=== PATIENT | male | born 1935 | race Caucasian/White ===

== ENCOUNTER 2018-07-28 16:08 | Inpatient (IN) | payer OTHER, MEDICARE ==
[2018-07-28] MEDS ORDERED: MORPHINE SULFATE 4 MG/ML SYRINGE IV PRN (17:41)
[2018-07-28] MEDS ORDERED: ONDANSETRON 4 MG/2 ML VIAL IVP PRN (17:41)
[2018-07-28] MEDS ORDERED: HYDROmorphone 1 MG/ML 1 ML SYRINGE IVP PRN (17:41)
--- NOTE | 2018-07-28 17:41 | ED ---
Lower Extremity Injury HPI - General Chief Complaint: Extremity Injury, Lower Stated Complaint[facility] Time Seen by Provider: 07/28/18 16:44 Source: patient, RN notes reviewed Mode of arrival: wheelchair Limitations: no limitations - History of Present Illness Initial Comments: 83-year-old male presents emergency Department with chief complaint of left hip pain. Patient states he tripped and fell last night. Patient states he had no other injuries. Patient followed up at the [facility] today was noted to have left hip fracture. Patient states the pain is very mild at this time. He states it does hurt more when he moves. Patient denies any significant past medical history though he states that he does not go to doctors on a regular basis. He denies chest pain, shortness breath, headache, dizziness, nausea vomiting diarrhea constipation. No fevers or chills. - Related Data Home Medications Medication Instructions Recorded Confirmed No Known Home Medications 07/28/18 07/28/18 Allergies Allergy/AdvReac Type Severity Reaction Status Date / Time No Known Allergies Allergy Verified 07/28/18 17:09 Review of Systems ROS Statement: Those systems with pertinent positive or pertinent negative responses have been documented in the HPI. ROS Other: All systems not noted in ROS Statement are negative. Past Medical History Past Medical History: No Reported History History of Any Multi-Drug Resistant Organisms: None Reported Past Surgical History: Appendectomy Past Psychological History: No Psychological Hx Reported Smoking Status: Never smoker Past Alcohol Use History: None Reported Past Drug Use History: None Reported General Exam Limitations: no limitations General appearance: alert, in no apparent distress Head exam: Present: atraumatic, normocephalic, normal inspection Eye exam: Present: normal appearance, PERRL, EOMI. Absent: scleral icterus, conjunctival injection, periorbital swelling ENT exam: Present: normal exam, mucous membranes moist Respiratory exam: Present: normal lung sounds bilaterally. Absent: respiratory distress, wheezes, rales, rhonchi, stridor Cardiovascular Exam: Present: regular rate, normal rhythm, normal heart sounds. Absent: systolic murmur, diastolic murmur, rubs, gallop, clicks Extremities exam: Present: other (Tenderness to left hip, limited range of motion neurovascular intact) Neurological exam: Present: alert, oriented X3, CN II-XII intact, reflexes normal. Absent: motor sensory deficit Skin exam: Present: warm, dry, intact, normal color. Absent: rash Course Vital Signs 07/28/18 16:16 Temperature 98.2 F Pulse Rate 98 Respiratory 18 Rate Blood Pressure 119/81 O2 Sat by Pulse 93 L Oximetry Medical Decision Making - Medical Decision Making 83-year-old male presented for left hip pain. Patient had x-rays outpatient which was reviewed shows left IT fracture patient will be admitted patient will need surgical clearance Disposition Clinical Impression: Closed left hip fracture Disposition: ADMITTED IP TO THIS HOSP Condition: Fair Referrals: [facility],Clinic [Primary Care Provider] - 1-2 days Time of Disposition: 17:41
--- NOTE | 2018-07-28 17:46 | XR ---
EXAMINATION TYPE: XR chest 1V DATE OF EXAM: 07/28/2018 COMPARISON: NONE HISTORY: Preop hip fracture TECHNIQUE: Single frontal view of the chest is obtained. FINDINGS: There is no heart failure nor confluent pneumonic infiltrate. Costophrenic angles are kyle r. Heart size is normal. Bony thorax appears intact. IMPRESSION: No active cardiopulmonary disease.
[2018-07-28 17:52] LABS: Basophils % (A) 0 %; Eosinophils % (A) 0 %; HCT 47.4 % (39.0-53.0); HGB 15.5 gm/dL (13.0-17.5); Lymphocytes # (A) 1.2 k/uL (1.0-4.8); Lymphocytes % (A) 14 %; MCH 31.1 pg (25.0-35.0); MCHC 32.7 g/dL (31.0-37.0); MCV 95.1 fL (80.0-100.0); Mean Platelet Volume 6.5; Monocytes # (A) 0.7 k/uL (0-1.0); Monocytes % (A) 8 %; Neutrophils # (A) 6.9 k/uL (1.3-7.7); Neutrophils % (A) 76 %; Platelet Count 288 k/uL (150-450); RBC 4.98 m/uL (4.30-5.90); RDW 12.7 % (11.5-15.5); WBC 9.1 k/uL (3.8-10.6)
[2018-07-28 18:01] LABS: ALT 23 U/L (21-72); AST 21 U/L (17-59); Albumin 4.2 g/dL (3.5-5.0); Alkaline Phosphatase 71 U/L (38-126); Anion Gap 9 mmol/L; Blood Urea Nitrogen 16 mg/dL (9-20); Calcium 9.7 mg/dL (8.4-10.2); Carbon Dioxide 27 mmol/L (22-30); Chloride 103 mmol/L (98-107); Glucose 123 mg/dL (74-99); Partial Thromboplastin Time 22.7 sec (22.0-30.0); Potassium 5.2 mmol/L (3.5-5.1); Prothrombin Time 10.1 sec (9.0-12.0); Sodium 139 mmol/L (137-145); Total Protein 7.4 g/dL (6.3-8.2)
[2018-07-28] MEDS: SODIUM CHLORIDE 0.9% 1,000 ML IV SCH (19:30)
[2018-07-28 22:43] LABS: Appearance,Urine Clear (Clear); Bilirubin,Urine Negative (Negative); Blood,Urine Negative (Negative); Color,Urine Yellow; Glucose,Urine (UA) Negative (Negative); Ketones,Urine 1+ (Negative); Leukocyte Esterase,Urine Negative (Negative); Nitrite,Urine Negative (Negative); PH, Urine 6.5 (5.0-8.0); Protein,Urine Negative (Negative); Specific Gravity,Urine 1.015 (1.001-1.035); Urobilinogen,Urine <2.0 mg/dL (<2.0)
--- NOTE | 2018-07-29 08:02 | XR ---
EXAMINATION TYPE: XR Hip LT and AP Pelvis DATE OF EXAM: 07/29/2018 COMPARISON: 07/28/2018 HISTORY: Preop planning, fractured hip TECHNIQUE: AP pelvis, 2 views left hip FINDINGS: There is an intertrochanteric fracture through the left hip. There is avulsion of the lesse r trochanter. Femoral head articulates with the acetabulum. No additional fractures are evident. IMPRESSION: 1. Comminuted Intertrochanteric fracture left hip
--- NOTE | 2018-07-29 12:05 | P.CONS ---
History of Present Illness - Reason for Consult Preoperative clearance - History of Present Illness 81-year-old present gentleman with known known past medical history came in after he tripped and fell and a had a left hip fracture. Patient denied any syncopal episode EKG showed some right bundle branch block without any acute ST- T wave changes patient does not have any chest pain at this time denied any history of congestive heart failure other any other cardiac problems. Patient lab testing basic labs are essentially within normal limits patient is not a smoker his baseline functional status is greater than 4 METs. Patient will be started on nonsteroidal anti-with his along with GI prophylaxis to avoid opiates considering his age. Patient is pain-free at this time. Review of Systems REVIEW OF SYSTEMS: CONSTITUTIONAL: No fever, no malaise, no fatigue. HEENT: No recent visual problems or hearing problems. Denied any sore throat. CARDIOVASCULAR: No chest pain, orthopnea, PND, no palpitations, no syncope. PULMONARY: No shortness of breath, no cough, no hemoptysis. GASTROINTESTINAL: No diarrhea, no nausea, no vomiting, no abdominal pain. Normoactive bowel sounds. NEUROLOGICAL: No headaches, no weakness, no numbness. HEMATOLOGICAL: Denies any bleeding or petechiae. GENITOURINARY: Denies any burning micturition, frequency, or urgency. MUSCULOSKELETAL/RHEUMATOLOGICAL: Denies swelling, or any muscle pain. Pain in the left hip when he moves ENDOCRINE: Denies any polyuria or polydipsia. The rest of the 14-point review of systems is negative. Past Medical History Past Medical History: No Reported History History of Any Multi-Drug Resistant Organisms: None Reported Past Surgical History: Appendectomy Past Psychological History: No Psychological Hx Reported Smoking Status: Never smoker Past Alcohol Use History: None Reported Past Drug Use History: None Reported - Past Family History Mother Family Medical History: No Reported History Father Family Medical History: No Reported History Medications and Allergies Home Medications Medication Instructions Recorded Confirmed Type No Known Home Medications 07/28/18 07/28/18 History Allergies Allergy/AdvReac Type Severity Reaction Status Date / Time soy Allergy Unknown Verified 07/29/18 11:08 Physical Exam Vitals: Vital Signs Temp Pulse Pulse Pulse Resp BP BP 07/29/18 07:25 98.3 F 83 16 121/82 07/28/18 23:59 99.0 F 65 113/73 07/28/18 20:09 98.6 F 90 133/66 07/28/18 19:21 98.6 F 79 18 129/82 07/28/18 16:16 98.2 F 98 18 119/81 Pulse Ox 07/29/18 07:25 94 L 07/28/18 23:59 90 L 07/28/18 20:09 90 L 07/28/18 19:21 96 07/28/18 16:16 93 L Intake and Output 07/28/18 07/29/18 07/29/18 22:59 06:59 14:59 Other: Voiding Method Urinal # Voids 2 Weight 81.647 kg PHYSICAL EXAMINATION: GENERAL: The patient is alert and oriented x3, not in any acute distress. Well developed, well nourished. HEENT: Pupils are round and equally reacting to light. EOMI. No scleral icterus. No conjunctival pallor. Normocephalic, atraumatic. No pharyngeal erythema. No thyromegaly. CARDIOVASCULAR: S1 and S2 present. No murmurs, rubs, or gallops. PULMONARY: Chest is clear to auscultation, no wheezing or crackles. ABDOMEN: Soft, nontender, nondistended, normoactive bowel sounds. No palpable organomegaly. MUSCULOSKELETAL: Deferred to orthopedic surgery EXTREMITIES: No cyanosis, clubbing, or pedal edema. NEUROLOGICAL: Gross neurological examination did not reveal any focal deficits. SKIN: No rashes. Results CBC & Chem 7: 07/28/18 17:35 07/28/18 17:35 Labs: Abnormal Lab Results - Last 24 Hours (Table) 07/28/18 07/28/18 Range/Units 17:35 Unknown Potassium 5.2 H (3.5-5.1) mmol/L Glucose 123 H (74-99) mg/dL Urine Ketones 1+ H (Negative) Assessment and Plan Plan: -Preoperative clearance left hip arthroplasty: Patient is low operative risk same thing was discussed with the patient and family members and patient will be going for surgery later today. -Pain management: Avoid opiates benzodiazepines barbiturates and anticholinergic medications considering his age and more prone for toxic encephalopathy or delirium from these medications. Patient will be started on Toradol and GI prophylaxis -DVT prophylaxis as per primary service
[2018-07-29 12:15] VITALS: BMI 25.8
--- NOTE | 2018-07-29 12:38 | P.HPOR ---
History of Present Illness H&P Date: 07/29/18 Chief Complaint: Hip fracture This 83-year-old male with no pertinent medical history presented to the ED yesterday afternoon with a left intertrochanteric hip fracture. The patient states he was walking outside at his friend's house the night of 07/26/18, when he tripped over uneven ground. He is unsure the mechanism of his fall, but he landed on his left hip. He states he experienced immediate pain and swelling of the left hip area. He presented to the [facility] earlier today, where he was told he sustained a hip fracture and should present to [facility] ED for further evaluation and treatment. The patient states he currently has no pain while lying flat in his hospital bed. He states he only has pain while moving the left hip. He denies any other significant injuries or pain in other areas of the body. Patient denies fever, chills, abdominal pain, chest pain or shortness of breath. Review of Systems See HPI. Past Medical History Past Medical History: No Reported History History of Any Multi-Drug Resistant Organisms: None Reported Past Surgical History: Appendectomy Past Psychological History: No Psychological Hx Reported Smoking Status: Never smoker Past Alcohol Use History: None Reported Past Drug Use History: None Reported - Past Family History Mother Family Medical History: No Reported History Father Family Medical History: No Reported History Medications and Allergies Home Medications Medication Instructions Recorded Confirmed Type No Known Home Medications 07/28/18 07/28/18 History Allergies Allergy/AdvReac Type Severity Reaction Status Date / Time soy Allergy Unknown Verified 07/29/18 11:08 Physical Examination On exam patient is lying comfortably in bed in no acute distress. The left lower extremity is shortened and externally rotated. Skin is intact with mild erythema of the left hip. Calf is soft and nontender to palpation. Dorsalis pedis pulses +2. Left lower extremity is warm and well-perfused. Abrasion on left knee. Head is normocephalic and atraumatic. Bilateral upper extremities and right lower extremity exams are within normal limits. - Cervical Spine Neck pain: none Tenderness with palpation: none Full ROM: yes ROM: flexion: normal ROM: extension: normal ROM: rotation right: normal ROM: rotation left: normal ROM: lateral flexion right: normal ROM: lateral flexion left: normal - Lumbar Spine Back pain: none Tenderness with palpation: none Appearance: normal Full ROM: yes ROM: flexion: normal ROM: extension: normal ROM: rotation right: normal ROM: rotation left: normal ROM: lateral flexion right: normal ROM: lateral flexion left: normal Results Xray shoes an intertrochanteric fracture of the left hip with an avulsion of the lesser trochanter. - Labs Labs: Abnormal Lab Results - Last 24 Hours (Table) 07/28/18 07/28/18 Range/Units 17:35 Unknown Potassium 5.2 H (3.5-5.1) mmol/L Glucose 123 H (74-99) mg/dL Urine Ketones 1+ H (Negative) H & H 07/28/18 Range/Units 17:35 Hgb 15.5 (13.0-17.5) gm/dL Hct 47.4 (39.0-53.0) % Coagulation 07/28/18 Range/Units 17:35 INR 1.0 (<1.2) Result Diagrams: 07/28/18 17:35 07/28/18 17:35 Assessment and Plan Assessment: Intertrochanteric fracture of the left hip Plan: 1. Rest, ice, elevation of left hip. 2. Pain control as needed. 3. NPO. 4. Intertrochanteric nail placement today with Dr. Gandhi pending medical clearance and consent.
[2018-07-29] MEDS: SODIUM CHLORIDE 0.9% 1,000 ML IV SCH ×2 (13:13→22:26)
[2018-07-29] MEDS: FAMOTIDINE 20 MG TAB PO SCH ×2 (14:12→21:33)
[2018-07-29] MEDS ORDERED: SODIUM CHLORIDE 0.9% 900 ML IV ONE (14:35)
[2018-07-29] MEDS ORDERED: SODIUM CHLORIDE 0.9% 50 ML with ceFAZolin 2,000 MG IV ONE ×2 (16:28)
[2018-07-29] MEDS ORDERED: PHENYLEPHRINE-0.9% NACL SYG 1 MG/10 ML SYRINGE ONE (16:28)
[2018-07-29] MEDS ORDERED: fentaNYL (PF) 50 MCG/ML 2 ML AMP ONE (16:28)
[2018-07-29] MEDS ORDERED: MIDAZOLAM 2 MG/2 ML VIAL ONE (16:28)
[2018-07-29] MEDS ORDERED: KETAMINE 10 MG/ML 20 ML VIAL ONE (16:28)
[2018-07-29] MEDS ORDERED: ceFAZolin 1,000 MG in SODIUM CHLORIDE 0.9% 1,000 ML IRRIGATION ONE (17:21)
[2018-07-29] MEDS ORDERED: HYDROcodone/APAP 5-325MG 1 EACH TAB PO PRN (18:18)
[2018-07-29] MEDS ORDERED: ONDANSETRON 4 MG/2 ML VIAL IVP PRN (18:18)
[2018-07-29] MEDS ORDERED: NALOXONE 0.4 MG/ML 1 ML VIAL IV PRN (18:18)
[2018-07-29] MEDS ORDERED: MAGNESIUM HYDROXIDE 2,400 MG/10 ML CUP PO PRN (18:18)
[2018-07-29] MEDS ORDERED: CALCIUM CARBONATE 500 MG CHEWABLE PO PRN (18:26)
--- NOTE | 2018-07-29 18:38 | P.OP ---
Date of Procedure: 07/29/18 Preoperative Diagnosis: left intertrochanteric hip fracture Postoperative Diagnosis: Left intertrochanteric hip fracture Procedure(s) Performed: Operative fixation of left intertrochanteric hip fracture with short intramedullary hip screw Anesthesia: spinal Surgeon: Renato Gandhi Iv Therapy Nurse #1: Devon Vieira Estimated Blood Loss (ml): 50 IV fluids (ml): 350 Pathology: none sent Condition: stable Disposition: PACU Indications for Procedure: The patient is a very pleasant relatively healthy 83-year-old male who sustained a ground-level fall yesterday resulting in a left intertrochanteric hip fracture. The patient was seen at an outlying facility where x-rays showed a hip fracture and he was transferred to our hospital. He was admitted under my care. He was seen preoperatively by internal medicine and cleared for surgery. I met with the patient and his extended family before surgery to discuss surgical options. My recommendation is operative fixation of his hip fracture with an intramedullary hip screw. We discussed potential risks and Locations of surgery including but not limited to risk of anesthesia, superficial infection, deep infection, delayed wound healing, wound necrosis, intraoperative fracture, postoperative fracture, varus collapse, failure of the implant, fracture displacement, need for further surgery, chronic pain, chronic swelling, inability to ambulate, difficulty ambulating, inability to regain preinjury level of function, DVT, PE, acute coronary event, stroke, urinary tract infection, pressure sores, and possibly loss of life. The patient and his extended family voiced her understanding of these potential complications and also a Tinel's other complications are possible. They provided their verbal and written consent to go forward with surgery. Description of Procedure: The patient was identified in preoperative holding and the correct left leg was marked with my initials. I reviewed the consent form with the patient and all of their questions were answered. The patient was then seen by anesthesia and brought back to the operating room. While he was still on the gurney a spinal anesthetic was administered. The patient was then carefully transferred onto a fracture table. A perineal post was placed. The affected left leg was placed into the boot of the fracture table. The unaffected right leg was flexed at the hip and the knee and was placed in a well leg acevedo. Both legs were secured and padded. The torso was then adducted toward the right and the left arm was draped across the body. A timeout was performed identifying the correct patient, operative extremity, and procedure. A large C-arm was then brought in to monitor the reduction. Using a combination of internal rotation, adduction, and longitudinal traction the fracture was reduced. I verified that the fracture was reduced in both the AP and lateral plane with fluoroscopy. The left leg was then prepped and draped in the standard sterile fashion. I began by making a stab incision just proximal to the tip of the greater trochanter in line with the femur. A guidepin was placed just medial to the tip of the greater trochanter on the AP view and centered with the femoral canal and the lateral view. A cannulated opening reamer was used over the guidepin to create an entrance of the proximal canal the femur. The cannulated opening reamer and guidepin were then removed. A short 10 mm diameter Synthes TFN nail was dispensed. It was hooked up to the targeting arm and I verified that the slots on the targeting arm corresponded to the slots on the nail. The nail was then gently tapped into place. The trocar for the helical blade was attached to the targeting arm and a marking was made on the lateral aspect of the femur. A second skin incision was made through the skin, subcutaneous tissue and IT band down the lateral cortex of the femur. The trocar was brought down to the lateral cortex of the femur and a guidepin was placed in the center center position in the femoral head. It was verified in AP view and found to be centered in the femoral head. The lateral view showed the guidepin to be slightly posterior to central which I accepted. A cannulated reamer was then used over the guidepin. A helical blade was then gently tapped into place. The set screw was applied proximally and then backed off half a turn to allow compression. The trocar for the helical blade was then tightened clockwise to generate compression across the fracture. The trocar for the helical blade was then removed. A trocar was then placed through the targeting arm for distal interlocking screw. A drill was used followed by a depth gauge and a distal interlocking screw was then placed. The targeting arm was removed proximally. Final fluoroscopic images were taken including an AP and lateral view. The wounds were then copiously irrigated and closed in layers. Devon [facility] was required as a skilled assistant principal for patient positioning, surgical exposure, reduction of fracture, placement of instrumentation, closure of wounds, and application of dressing. Plan: The patient can be toe-touch weightbearing on the left leg. He will need 2 doses of postoperative antibiotics. He will need DVT prophylaxis with Lovenox 40 mg daily 4 weeks. He'll need physical therapy for gait training and social work for discharge planning. Appreciate internal medicine assistance with perioperative medical management
[2018-07-29 20:02] LABS: Basophils % (A) 0 %; Eosinophils # (A) 0.1 k/uL (0-0.7); Eosinophils % (A) 1 %; HCT 42.9 % (39.0-53.0); HGB 13.7 gm/dL (13.0-17.5); Lymphocytes # (A) 1.2 k/uL (1.0-4.8); Lymphocytes % (A) 11 %; MCH 31.4 pg (25.0-35.0); MCHC 31.9 g/dL (31.0-37.0); MCV 98.6 fL (80.0-100.0); Mean Platelet Volume 6.5; Monocytes # (A) 0.7 k/uL (0-1.0); Monocytes % (A) 7 %; Neutrophils # (A) 8.4 k/uL (1.3-7.7); Neutrophils % (A) 78 %; Platelet Count 239 k/uL (150-450); RBC 4.35 m/uL (4.30-5.90); RDW 12.6 % (11.5-15.5); WBC 10.7 k/uL (3.8-10.6)
[2018-07-29] MEDS: HYDROmorphone 1 MG/ML 1 ML SYRINGE IVP PRN ×2 (20:46→23:45)
[2018-07-29] MEDS: SENNOSIDES-DOCUSATE SODIUM 1 EACH TAB PO SCH (21:33)
[2018-07-29] MEDS: LACTATED RINGERS 1,000 ML IV SCH (21:33)
[2018-07-29] MEDS: HYDROcodone/APAP 5-325MG 1 EACH TAB PO PRN (21:36)
[2018-07-29] MEDS: ceFAZolin IN SWFI 2 GM/20 ML SYRINGE IVP SCH (23:46)
[2018-07-30 07:17] LABS: HCT 35.8 % (39.0-53.0); MCH 31.8 pg (25.0-35.0); MCHC 33.7 g/dL (31.0-37.0); MCV 94.4 fL (80.0-100.0); Mean Platelet Volume 6.6; Platelet Count 215 k/uL (150-450); RBC 3.79 m/uL (4.30-5.90); RDW 12.5 % (11.5-15.5); WBC 7.5 k/uL (3.8-10.6)
[2018-07-30] MEDS: LACTATED RINGERS 1,000 ML IV SCH ×3 (07:22→23:23)
[2018-07-30 07:32] LABS: Anion Gap 6 mmol/L; Blood Urea Nitrogen 12 mg/dL (9-20); Calcium 8.1 mg/dL (8.4-10.2); Carbon Dioxide 26 mmol/L (22-30); Chloride 104 mmol/L (98-107); Glucose 103 mg/dL (74-99); Sodium 136 mmol/L (137-145)
[2018-07-30] MEDS: KETOROLAC 30 MG/ML 1 ML VIAL IVP PRN ×2 (08:47→23:23)
[2018-07-30] MEDS: CHOLECALCIFEROL 1,000 UNIT TAB PO SCH ×2 (08:47→08:48)
[2018-07-30] MEDS: FAMOTIDINE 20 MG TAB PO SCH ×2 (08:48→22:04)
[2018-07-30] MEDS: MULTIVITAMINS, THERA 1 EACH TAB PO SCH (08:49)
[2018-07-30] MEDS: ENOXAPARIN 40 MG/0.4 ML SYRINGE SQ SCH (08:52)
[2018-07-30] MEDS: ceFAZolin IN SWFI 2 GM/20 ML SYRINGE IVP SCH (09:36)
[2018-07-30] MEDS ORDERED: SENNOSIDES 8.6 MG TAB PO PRN (09:37)
[2018-07-30] MEDS: SENNOSIDES-DOCUSATE SODIUM 1 EACH TAB PO SCH (09:54)
--- NOTE | 2018-07-30 09:56 | P.PN ---
Subjective 81-year-old pleasant gentleman admitted for left hip fracture underwent open reduction internal fixation with screw. Patient is clinically doing well did not move his bowels and 6 does have good bowel sounds. Morphine and Dilaudid will be discontinued patient will continued on [place] Toradol. Patient denied any pain at this point of time. Patient is doing well. Patient doesn't have any surgical drain. Constitutional: Denied any fatigue denied any fever. Cardio vascular: denied any chest pain, palpitations Gastrointestinal denied any nausea vomiting Pulmonary: Denied any shortness of breath cough Neurologic denied any new focal deficits All inpatient medications were reviewed and appropriate changes in these medications as dictated in the interval history and assessment and plan. Objective - Vital Signs Vital signs: Vital Signs Temp 98.3 F 07/30/18 08:00 Pulse 82 07/30/18 08:00 Resp 18 07/30/18 08:00 BP 128/78 07/30/18 08:00 Pulse Ox 94 L 07/29/18 23:57 Intake & Output 07/29/18 07/30/18 07/30/18 18:59 06:59 18:59 Intake Total 1301 1050 Output Total 20 650 Balance 1281 400 Weight 81.647 kg Intake: IV 1301 Sodium Chloride 0.9% 1, 600 000 ml @ 75 mls/hr IV . [id number] DANNY Rx#:[id number] Intake, IV Titration 1050 Amount Lactated Ringers 1,000 ml 1050 @ 100 mls/hr IV .Q10H DANNY Rx#:[id number] Output: Urine 650 Estimated Blood Loss 20 Other: Voiding Method Urinal Urinal # Voids 1 2 - Exam PHYSICAL EXAMINATION: GENERAL: The patient is alert and oriented x3, not in any acute distress. Well developed, well nourished. HEENT: Pupils are round and equally reacting to light. EOMI. No scleral icterus. No conjunctival pallor. Normocephalic, atraumatic. No pharyngeal erythema. No thyromegaly. CARDIOVASCULAR: S1 and S2 present. No murmurs, rubs, or gallops. PULMONARY: Chest is clear to auscultation, no wheezing or crackles. ABDOMEN: Soft, nontender, nondistended, normoactive bowel sounds. No palpable organomegaly. MUSCULOSKELETAL: Deferred to orthopedic surgery EXTREMITIES: No cyanosis, clubbing, or pedal edema. NEUROLOGICAL: Gross neurological examination did not reveal any focal deficits. SKIN: No rashes. - Labs CBC & Chem 7: 07/30/18 06:48 07/30/18 06:48 Labs: Abnormal Lab Results - Last 24 Hours (Table) 07/29/18 07/30/18 07/30/18 Range/Units 19:25 06:48 06:48 WBC 10.7 H (3.8-10.6) k/uL RBC 3.79 L (4.30-5.90) m/uL Hgb 12.0 L (13.0-17.5) gm/dL Hct 35.8 L (39.0-53.0) % Neutrophils # 8.4 H (1.3-7.7) k/uL Sodium 136 L (137-145) mmol/L Creatinine 0.56 L (0.66-1.25) mg/dL Glucose 103 H (74-99) mg/dL Calcium 8.1 L (8.4-10.2) mg/dL Assessment and Plan Plan: -Left hip fracture mechanical fall.: Pain management as mentioned above, DVT prophylaxis as per primary service. Patient will be started on some as needed for constipation -Pain management: Avoid opiates benzodiazepines barbiturates and anticholinergic medications considering his age and more prone for toxic encephalopathy or delirium from these medications. Patient will be started on Toradol and GI prophylaxis -DVT prophylaxis as per primary service
--- NOTE | 2018-07-30 10:09 | P.PN ---
Subjective Progress Note Date: 07/30/18 The patient is doing well this morning. He denies chest pain or shortness of breath. He has some discomfort in his hip and his pain is adequately controlled. He got up and started at bedside with physical therapy earlier this morning. Objective - Vital Signs Vital signs: Vital Signs Temp 98.3 F 07/30/18 08:00 Pulse 82 07/30/18 08:00 Resp 18 07/30/18 08:00 BP 128/78 07/30/18 08:00 Pulse Ox 94 L 07/29/18 23:57 Intake & Output 07/29/18 07/30/18 07/30/18 18:59 06:59 18:59 Intake Total 1301 1050 Output Total 20 650 Balance 1281 400 Weight 81.647 kg Intake: IV 1301 Sodium Chloride 0.9% 1, 600 000 ml @ 75 mls/hr IV . [id number] DANNY Rx#:[id number] Intake, IV Titration 1050 Amount Lactated Ringers 1,000 ml 1050 @ 100 mls/hr IV .Q10H DANNY Rx#:[id number] Output: Urine 650 Estimated Blood Loss 20 Other: Voiding Method Urinal Urinal # Voids 1 2 - Exam The patient is in no apparent distress and is alert and able to answer questions. On examination of the left leg there are clean dressings over the hip. The thigh is soft. Motor and sensory function are intact in the foot. - Labs CBC & Chem 7: 07/30/18 06:48 07/30/18 06:48 Labs: Abnormal Lab Results - Last 24 Hours (Table) 07/29/18 07/30/18 07/30/18 Range/Units 19:25 06:48 06:48 WBC 10.7 H (3.8-10.6) k/uL RBC 3.79 L (4.30-5.90) m/uL Hgb 12.0 L (13.0-17.5) gm/dL Hct 35.8 L (39.0-53.0) % Neutrophils # 8.4 H (1.3-7.7) k/uL Sodium 136 L (137-145) mmol/L Creatinine 0.56 L (0.66-1.25) mg/dL Glucose 103 H (74-99) mg/dL Calcium 8.1 L (8.4-10.2) mg/dL Assessment and Plan Plan: Postoperative day #1 status post operative fixation of left intertrochanteric hip fracture with short intramedullary hip screw, doing well. 1. Toe-touch weightbearing on the left lower extremity 2. DVT prophylaxis with Lovenox 40 mg daily 4 weeks 3. 2 doses postoperative antibiotics 4. Appreciate internal medicine's assistance with perioperative medical management 5. Bone health labs pending 6. Continued physical therapy for mobilization and gait training 7. Discharge planning in progress
--- NOTE | 2018-07-30 11:23 | P.PN ---
Subjective Progress Note Date: 07/30/18 Principal diagnosis: Left hip fracture Patient is seen at bedside this morning. He is postop day #1 from left IT nail for hip fracture. He has pain at the surgical site as expected but denies any new complaints. He denies numbness, tingling or calf pain. Review of systems is negative for fever, chills, chest pain, shortness of breath or other Objective - Vital Signs Vital signs: Vital Signs Temp 98.3 F 07/30/18 08:00 Pulse 82 07/30/18 08:00 Resp 18 07/30/18 08:00 BP 128/78 07/30/18 08:00 Pulse Ox 94 L 07/29/18 23:57 Intake & Output 07/29/18 07/30/18 07/30/18 18:59 06:59 18:59 Intake Total 1301 1050 Output Total 20 650 Balance 1281 400 Weight 81.647 kg Intake: IV 1301 Sodium Chloride 0.9% 1, 600 000 ml @ 75 mls/hr IV . [id number] [facility] Rx#:[id number] Intake, IV Titration 1050 Amount Lactated Ringers 1,000 ml 1050 @ 100 mls/hr IV .Q10H [facility] Rx#:[id number] Output: Urine 650 Estimated Blood Loss 20 Other: Voiding Method Urinal Urinal # Voids 1 2 - Exam Inspection reveals a benign surgical wound. There is no active bleeding or drainage. Neurovascular status is intact throughout the lower extremity with motor and sensation fully intact. Calf is soft and nontender. 2+ dorsalis pedis pulse and less than 2 second cap refill is present. - Constitutional General appearance: Present: no acute distress - Labs CBC & Chem 7: 07/30/18 06:48 07/30/18 06:48 Labs: Abnormal Lab Results - Last 24 Hours (Table) 07/29/18 07/30/18 07/30/18 Range/Units 19:25 06:48 06:48 WBC 10.7 H (3.8-10.6) k/uL RBC 3.79 L (4.30-5.90) m/uL Hgb 12.0 L (13.0-17.5) gm/dL Hct 35.8 L (39.0-53.0) % Neutrophils # 8.4 H (1.3-7.7) k/uL Sodium 136 L (137-145) mmol/L Creatinine 0.56 L (0.66-1.25) mg/dL Glucose 103 H (74-99) mg/dL Calcium 8.1 L (8.4-10.2) mg/dL Assessment and Plan (1) Closed left hip fracture Narrative/Plan: He will continue with routine postop orthopedic protocol including pain management, PT, wound care, DVT prophylaxis and medical management. Expect that he will discharge to home with home health in the next one to 2 days Current Visit: Yes Status: Acute Priority: Medium Code(s): S72.002A - FRACTURE OF UNSP PART OF NECK OF LEFT FEMUR, INIT SNOMED Code(s): 451808313 Time with Patient: Less than 30
[2018-07-30] MEDS: SODIUM CHLORIDE 0.9% 1,000 ML IV SCH (12:55)
[2018-07-30] MEDS: HYDROcodone/APAP 5-325MG 1 EACH TAB PO PRN (14:45)
[2018-07-30] MEDS ORDERED: ERGOCALCIFEROL 50,000 UNIT CAP PO SCH (21:00)
[2018-07-30] MEDS ORDERED: diphenhydrAMINE 25 MG CAP PO PRN (22:06)
[2018-07-31] MEDS: SODIUM CHLORIDE 0.9% 1,000 ML IV SCH ×2 (01:14→15:55)
[2018-07-31] MEDS: KETOROLAC 30 MG/ML 1 ML VIAL IVP PRN ×2 (05:32→21:15)
[2018-07-31 07:19] LABS: Basophils % (A) 1 %; Eosinophils # (A) 0.2 k/uL (0-0.7); Eosinophils % (A) 3 %; HCT 33.5 % (39.0-53.0); HGB 10.9 gm/dL (13.0-17.5); Lymphocytes # (A) 0.7 k/uL (1.0-4.8); Lymphocytes % (A) 11 %; MCH 30.7 pg (25.0-35.0); MCHC 32.5 g/dL (31.0-37.0); MCV 94.5 fL (80.0-100.0); Mean Platelet Volume 6.4; Monocytes # (A) 0.5 k/uL (0-1.0); Monocytes % (A) 8 %; Neutrophils # (A) 4.6 k/uL (1.3-7.7); Neutrophils % (A) 75 %; Platelet Count 216 k/uL (150-450); RBC 3.54 m/uL (4.30-5.90); RDW 12.5 % (11.5-15.5); WBC 6.2 k/uL (3.8-10.6)
[2018-07-31] MEDS: CHOLECALCIFEROL 1,000 UNIT TAB PO SCH (07:33)
[2018-07-31] MEDS: ENOXAPARIN 40 MG/0.4 ML SYRINGE SQ SCH (07:34)
[2018-07-31] MEDS: MULTIVITAMINS, THERA 1 EACH TAB PO SCH (07:34)
[2018-07-31] MEDS: FAMOTIDINE 20 MG TAB PO SCH ×2 (07:35→21:14)
[2018-07-31] MEDS: LACTATED RINGERS 1,000 ML IV SCH ×2 (08:33→20:44)
--- NOTE | 2018-07-31 10:19 | XR ---
Fluoroscopy History: Lt hip IT nail Lt hip IT nail, 1 min 28 sec fluoro, 2 images scanned
--- NOTE | 2018-07-31 13:07 | P.PN ---
Subjective 81-year-old pleasant gentleman admitted for left hip fracture underwent open reduction internal fixation with screw. Patient is clinically doing well did not move his bowels and 6 does have good bowel sounds. Morphine and Dilaudid will be discontinued patient will continued on [place] Toradol. Patient denied any pain at this point of time. Patient is doing well. Patient doesn't have any surgical drain. 07/31/2018 No overnight events patient had a good bowel movement today. Constitutional: Denied any fatigue denied any fever. Cardio vascular: denied any chest pain, palpitations Gastrointestinal denied any nausea vomiting Pulmonary: Denied any shortness of breath cough Neurologic denied any new focal deficits All inpatient medications were reviewed and appropriate changes in these medications as dictated in the interval history and assessment and plan. Objective - Vital Signs Vital signs: Vital Signs Temp 98.4 F 07/31/18 08:00 Pulse 76 07/31/18 08:00 Resp 16 07/31/18 08:00 BP 126/72 07/31/18 08:00 Pulse Ox 98 07/31/18 08:00 Intake & Output 07/30/18 07/31/18 07/31/18 18:59 06:59 18:59 Intake Total 1722 1300 850 Output Total 300 Balance 1422 1300 850 Intake: IV 1000 Sodium Chloride 0.9% 1, 1000 000 ml @ 75 mls/hr IV . [id number] [facility] Rx#:[id number] Intake, IV Titration 1300 Amount Lactated Ringers 1,000 ml 1300 @ 100 mls/hr IV .Q10H [facility] Rx#:[id number] Oral 722 850 Output: Urine 300 Other: Voiding Method Urinal # Voids 2 # Bowel Movements 1 - Exam PHYSICAL EXAMINATION: GENERAL: The patient is alert and oriented x3, not in any acute distress. Well developed, well nourished. HEENT: Pupils are round and equally reacting to light. EOMI. No scleral icterus. No conjunctival pallor. Normocephalic, atraumatic. No pharyngeal erythema. No thyromegaly. CARDIOVASCULAR: S1 and S2 present. No murmurs, rubs, or gallops. PULMONARY: Chest is clear to auscultation, no wheezing or crackles. ABDOMEN: Soft, nontender, nondistended, normoactive bowel sounds. No palpable organomegaly. MUSCULOSKELETAL: Deferred to orthopedic surgery EXTREMITIES: No cyanosis, clubbing, or pedal edema. NEUROLOGICAL: Gross neurological examination did not reveal any focal deficits. SKIN: No rashes. - Labs CBC & Chem 7: 07/31/18 06:43 07/30/18 06:48 Labs: Abnormal Lab Results - Last 24 Hours (Table) 07/31/18 Range/Units 06:43 RBC 3.54 L (4.30-5.90) m/uL Hgb 10.9 L (13.0-17.5) gm/dL Hct 33.5 L (39.0-53.0) % Lymphocytes # 0.7 L (1.0-4.8) k/uL Assessment and Plan Plan: -Left hip fracture mechanical fall.: Pain management as mentioned above, DVT prophylaxis as per primary service. Patient will be started on some as needed for constipation -Pain management: Avoid opiates benzodiazepines barbiturates and anticholinergic medications considering his age and more prone for toxic encephalopathy or delirium from these medications. Patient will be started on Toradol and GI prophylaxis -DVT prophylaxis as per primary service
--- NOTE | 2018-07-31 13:54 | P.PN ---
Subjective Progress Note Date: 07/31/18 Principal diagnosis: Left hip fracture Patient is seen at bedside this morning. He is postop day #2 from left IT nail for hip fracture. He has pain at the surgical site as expected but denies any new complaints. He denies numbness, tingling or calf pain. Review of systems is negative for fever, chills, chest pain, shortness of breath or other Objective - Vital Signs Vital signs: Vital Signs Temp 98.4 F 07/31/18 08:00 Pulse 76 07/31/18 08:00 Resp 16 07/31/18 08:00 BP 126/72 07/31/18 08:00 Pulse Ox 98 07/31/18 08:00 Intake & Output 07/30/18 07/31/18 07/31/18 18:59 06:59 18:59 Intake Total 1722 1300 850 Output Total 300 Balance 1422 1300 850 Intake: IV 1000 Sodium Chloride 0.9% 1, 1000 000 ml @ 75 mls/hr IV . [id number] [facility] Rx#:[id number] Intake, IV Titration 1300 Amount Lactated Ringers 1,000 ml 1300 @ 100 mls/hr IV .Q10H [facility] Rx#:[id number] Oral 722 850 Output: Urine 300 Other: Voiding Method Urinal # Voids 2 # Bowel Movements 1 - Exam Inspection reveals a benign surgical wound. There is no active bleeding or drainage. Neurovascular status is intact throughout the lower extremity with motor and sensation fully intact. Calf is soft and nontender. 2+ dorsalis pedis pulse and less than 2 second cap refill is present. - Constitutional General appearance: Present: no acute distress - Labs CBC & Chem 7: 07/31/18 06:43 07/30/18 06:48 Labs: Abnormal Lab Results - Last 24 Hours (Table) 07/31/18 Range/Units 06:43 RBC 3.54 L (4.30-5.90) m/uL Hgb 10.9 L (13.0-17.5) gm/dL Hct 33.5 L (39.0-53.0) % Lymphocytes # 0.7 L (1.0-4.8) k/uL Assessment and Plan (1) Closed left hip fracture Narrative/Plan: He will continue with routine postop orthopedic protocol including pain management, PT, wound care, DVT prophylaxis and medical management. Expect that he will discharge to home with home health tomorrow Current Visit: Yes Status: Acute Priority: Medium Code(s): S72.002A - FRACTURE OF UNSP PART OF NECK OF LEFT FEMUR, INIT SNOMED Code(s): 324862116 Time with Patient: Less than 30
[2018-07-31 19:45] VITALS: RESP 14
[2018-07-31] MEDS: SENNOSIDES-DOCUSATE SODIUM 1 EACH TAB PO SCH (21:15)
[2018-08-01] MEDS: SODIUM CHLORIDE 0.9% 1,000 ML IV SCH (03:57)
[2018-08-01] MEDS: LACTATED RINGERS 1,000 ML IV SCH (05:23)
[2018-08-01 07:06] VITALS: BP 136/75; PULSE 72; TEMP 98.6
[2018-08-01] MEDS: ENOXAPARIN 40 MG/0.4 ML SYRINGE SQ SCH ×2 (07:10→07:11)
[2018-08-01] MEDS: KETOROLAC 30 MG/ML 1 ML VIAL IVP PRN (07:10)
[2018-08-01] MEDS: FAMOTIDINE 20 MG TAB PO SCH (07:10)
--- NOTE | 2018-08-01 08:53 | FL ---
EXAMINATION TYPE: FL guidance operating room DATE OF EXAM: 07/29/2018 HISTORY: Flouroscopy time 1 minute and 28 seconds of fluoroscopy provided. IMPRESSION: 1. Fluoroscopy time.
[2018-08-01] MEDS: MULTIVITAMINS, THERA 1 EACH TAB PO SCH (12:12)
--- NOTE | 2018-08-01 14:07 | P.PN ---
Subjective 81-year-old pleasant gentleman admitted for left hip fracture underwent open reduction internal fixation with screw. Patient is clinically doing well did not move his bowels and 6 does have good bowel sounds. Morphine and Dilaudid will be discontinued patient will continued on [place] Toradol. Patient denied any pain at this point of time. Patient is doing well. Patient doesn't have any surgical drain. 07/31/2018 No overnight events patient had a good bowel movement today. 08/01/2018 Patient is clinically doing very well discharge medication reconciliation was reviewed and patient is okay to be discharged from medical perspective Constitutional: Denied any fatigue denied any fever. Cardio vascular: denied any chest pain, palpitations Gastrointestinal denied any nausea vomiting Pulmonary: Denied any shortness of breath cough Neurologic denied any new focal deficits All inpatient medications were reviewed and appropriate changes in these medications as dictated in the interval history and assessment and plan. Objective - Vital Signs Vital signs: Vital Signs Temp 98.6 F 08/01/18 07:02 Pulse 72 08/01/18 07:02 Resp 14 07/31/18 19:15 BP 136/75 08/01/18 07:02 Pulse Ox 92 L 08/01/18 07:02 Intake & Output 07/31/18 08/01/18 08/01/18 18:59 06:59 18:59 Intake Total 2765 350 Output Total 600 Balance 2165 350 Intake: IV 675 Sodium Chloride 0.9% 1, 675 000 ml @ 75 mls/hr IV . [id number] [facility] Rx#:[id number] Oral 2090 350 Output: Urine 600 Other: Voiding Method Toilet Toilet # Voids 1 # Bowel Movements 1 - Exam PHYSICAL EXAMINATION: GENERAL: The patient is alert and oriented x3, not in any acute distress. Well developed, well nourished. HEENT: Pupils are round and equally reacting to light. EOMI. No scleral icterus. No conjunctival pallor. Normocephalic, atraumatic. No pharyngeal erythema. No thyromegaly. CARDIOVASCULAR: S1 and S2 present. No murmurs, rubs, or gallops. PULMONARY: Chest is clear to auscultation, no wheezing or crackles. ABDOMEN: Soft, nontender, nondistended, normoactive bowel sounds. No palpable organomegaly. MUSCULOSKELETAL: Deferred to orthopedic surgery EXTREMITIES: No cyanosis, clubbing, or pedal edema. NEUROLOGICAL: Gross neurological examination did not reveal any focal deficits. SKIN: No rashes. - Labs CBC & Chem 7: 07/31/18 06:43 07/30/18 06:48 Assessment and Plan Plan: -Left hip fracture mechanical fall.: Pain management as mentioned above, DVT prophylaxis as per primary service. Patient is otherwise clinically doing well and is being discharged today medically stable to be discharged -DVT prophylaxis as per primary service
== END 2018-08-01 14:30 | disposition home health service (06) | DRG 482 ==
LOC: EC 16:08 → 4SSUR 18:27
PROVIDERS: ADMIT Orthopaedic Surgery; ATTEND Orthopaedic Surgery
PROC: 0QS736Z Reposition Left Upper Femur with Intramedullary Internal Fixation Device, Percutaneous Approach (ICD-10-PCS; principal; 2018-07-29 09:45)
DX: S72.142A Displaced intertrochanteric fracture of left femur, initial encounter for closed fracture (principal); I45.10 Unspecified right bundle-branch block; Z90.49 Acquired absence of other specified parts of digestive tract; Z91.018 Allergy to other foods; W01.0XXA Fall on same level from slipping, tripping and stumbling without subsequent striking against object, initial encounter
CPT/HCPCS: 36415; 71045; 73502; 80048; 80053; 81003; 82306; 85025; 85027; 85610; 85730; 93005; 99285

== ENCOUNTER → 2018-10-11 | Outpatient (CLI) | payer OTHER ==
--- NOTE | 2018-10-11 13:23 | CT ---
EXAMINATION TYPE: CT humerus LT wo con DATE OF EXAM: 10/11/2018 COMPARISON: Pain HISTORY: Left sided arm pain post fall July 2018 CT DLP: 429.1 mGycm Automated exposure control for dose reduction was used. FINDINGS: There is arthropathy of the AC joint and narrowing and hypertrophic change of the glenohumeral joint. Hypertrophic and degenerative change of the vertebral column. No acute fracture or dislocation. IMPRESSION: ARTHROPATHY OF WHICH NO EVIDENCE OF ACUTE FRACTURE OR DISLOCATION. HUMERAL HEAD IS SOMEWHAT HIGH RIDI NG WHICH CAN BE ASSOCIATED WITH ROTATOR CUFF INJURY CORRELATE WITH MRI CLINICALLY WARRANTED.
== END | disposition home or self-care (01) ==
LOC: RADCTMAIN 12:52
DX: M19.012 Primary osteoarthritis, left shoulder (principal)